=== PATIENT | female | born 1960 | race Two or more races ===

== ENCOUNTER → 2016-11-27 | Outpatient (CLI) | payer OTHER | LOC: BMCIMAGING 15:03 | DX: Z12.31 Encounter for screening mammogram for malignant neoplasm of breast (principal) | CPT/HCPCS: G0202 ==

== ENCOUNTER → 2016-12-14 | Outpatient (CLI) | payer OTHER | LOC: BMCIMAGING 12:46 | DX: Z03.89 Encounter for observation for other suspected diseases and conditions ruled out (principal) | CPT/HCPCS: G0206 ==

== ENCOUNTER 2017-11-28 10:50 | Emergency (ER) | payer OTHER ==
[2017-11-28 10:59] VITALS: TEMP 98.1; O2SAT 95
--- NOTE | 2017-11-28 11:13 | EDPHY ---
HPI/HX/ROS/PE/MDM Narrative: CHIEF COMPLAINT: Cough HPI: This patient is a Jamaican-speaking 57 year old female complaining of cough. The cough has been persistent for about one week. She went to urgent care on Wednesday and was prescribed Azithromycin for bronchitis. She has noted a productive cough with occasional yellow sputum. Additionally, she has had night sweats. Now , has back pain associated with her cough. She denies having a chest x-ray at urgent care. The patient is also taking a cough suppressant at night and one additional medication, but she cannot remember the names of these medications. She denies vomiting, diarrhea, rash, urinary complaints, or other associated symptoms. HPI obtained primarily thought radiology teacher at bedside. REVIEW OF SYSTEMS: Aside from elements discussed in the HPI, a comprehensive 10-point review of systems was reviewed and is negative. PMH: Diabetes. SOCIAL HISTORY: Jamaican-speaking. Friend at bedside. PHYSICAL EXAM: General:Patient is alert, in no acute distress. ENT:Eyes are normal to inspection. ENT inspection normal. Neck: Normal inspection. Full range of motion. Respiratory:No respiratory distress. Breath sounds normal bilaterally. Cardiovascular: Regular rate and rhythm. Strong peripheral pulses. Normal cap refill. Abdomen:The abdomen is nontender to palpation. There are no peritoneal signs. There are normal bowel sounds. Back: Normal to inspection. No tenderness to palpation. Skin: Normal color. No rash. Warm and dry. Extremities: Normal appearance. Full range of motion. Neuro: Oriented x3. Normal motor function. Normal sensory function. ED Course: 57 y/o female presents with one week history of cough. She is currently taking Azithromycin and a cough suppressant, but symptoms persist. Her lungs are clear to auscultation on exam. Plan for chest x-ray. Chest x-ray negative for pneumonia. Plan to discharge patient home in good condition. She informs me she has already completed her course of Azithromycin but is still taking cough medications. She will continue to take these and follow up with her primary care provider. Return precautions discussed. She is comfortable with this plan. - Data Points Imaging Results: Imaging Impressions Chest X-Ray 11/28/17 11:15 Impression: Findings most consistent with airways disease are noted. Imaging: I viewed and interpreted images myself General Initial Vital Signs: Initial Vital Signs Temperature (C) 36.7 C 04/01/18 10:54 Heart Rate 73 11/28/17 10:54 Respiratory Rate 20 11/28/17 10:54 Blood Pressure 164/90 H 11/28/17 10:54 O2 Sat (%) 95 11/28/17 10:54 O2 Delivery Mode Room Air Allergies/Adverse Reactions: No Known Allergies Allergy (Verified 11/28/17 10:54) Home Medications: Medication Instructions Recorded Azithromycin 11/28/17 Diabetic Pill 11/28/17 Departure - Departure Disposition: Home, Routine, Self-Care Clinical Impression: Acute bronchitis Qualifiers: Bronchitis organism: other organism Qualified Code(s): J20.8 - Acute bronchitis due to other specified organisms Condition: Good Instructions: Acute Bronchitis (ED) Additional Instructions: 1. Follow up with your primary care provider in 2-3 days. 2. Continue taking your cough medications as prescribed. 3. Return to the emergency department for fever, chest pain, difficulty breathing, or other worsening of condition. 1. Seguimiento con el provedor de cuidado primario en 2-3 khanna. 2. Continue tomando angel medicamentos xiomara se le recetaron. 3.Regrese al departamento de emergencias si tiene fiebre, dolor de pecho, dificultad al respirar, o empeoramiento de la condicion. Referrals: Salbador Chou MD [Primary Care Provider] - As per Instructions Print Language: Jamaican Report Scribed for: Rubén Pearl Report Scribed by: Corine Hernández Date of Report: 11/28/17 Time of Report: 11:15 Physician Review and Approval Statement: Portions of this note were transcribed by an ED scribe. I personally performed the history, physical exam, and medical decision making; and confirm the accuracy of the information in the transcribed note.
[2017-11-28 11:56] VITALS: BP 135/68; PULSE 80; RESP 16
== END 2017-11-28 12:05 | disposition home or self-care (01) ==
DX: J20.9 Acute bronchitis, unspecified (principal); E11.9 Type 2 diabetes mellitus without complications

== ENCOUNTER → 2017-12-23 | Outpatient (CLI) | payer OTHER | LOC: BMCIMAGING 15:15 | PROVIDERS: ATTEND Internal Medicine | DX: Z12.31 Encounter for screening mammogram for malignant neoplasm of breast (principal) ==

== ENCOUNTER 2018-08-21 23:12 | Emergency (ER) | payer OTHER ==
[2018-08-21] MEDS ORDERED: NS 1,000 ML IV ONE (23:29)
--- NOTE | 2018-08-21 23:30 | EDPHY ---
H & P Stated Complaint: Right flank pain and right mid abdominal pain x 1 week Time Seen by Provider: 08/21/18 23:29 HPI/ROS: HPI CHIEF COMPLAINT: Right-sided abdominal pain. HISTORY OF PRESENT ILLNESS: 58-year-old female, predominantly Cymraes-speaking , has family members at bedside that were used for automotive parts interpreter daughter at bedside. She has a history of diabetes. She presents emergency room with 1 week of abdominal pain it is mainly right-sided. Right mid abdomen. She denies any chest pain or shortness of breath denies pleuritic pain. Pain is located right-sided abdomen right flank. Does not really radiate anywhere. No associated nausea vomiting or diarrhea. Rather constant pain. Denies it being worse after she eats. Past Medical History: Diabetes Past Surgical History: Denies Social History: Denies drugs alcohol tobacco. Family History: Noncontributory ROS REVIEW OF SYSTEMS: 10 Systems were reviewed and negative with the exception of the elements mentioned in the history of present illness. Exam Constitutional appears well nontoxic no acute distress triage nursing summary reviewed, vital signs reviewed, awake/alert. Eyes normal conjunctivae and sclera, EOMI, PERRLA. HENT normal inspection, atraumatic, moist mucus membranes, no epistaxis, neck supple/ no meningismus, no raccoon eyes. Respiratory clear to auscultation bilaterally, normal breath sounds, no respiratory distress, no wheezing. Cardiovascular rate normal, regular rhythm, no murmur, no edema, distal pulses normal. Gastrointestinal mild tender palpation right flank and right-sided abdomen, no rebound, no guarding, normal bowel sounds, no distension, no pulsatile mass. Genitourinary no CVA tenderness. Musculoskeletal no midline vertebral tenderness, full range of motion, no calf swelling, no tenderness of extremities, no meningismus, good pulses, neurovascularly intact. Skin pink, warm, & dry, no rash, skin atraumatic. Neurologic awake, alert and oriented x 3, AAOx3, moves all 4 extremities equally, motor intact, sensory intact, CN II-XII intact, normal cerebellar, normal vision, normal speech. Psychiatric normal mood/affect. Heme/Lymph/Immune no lymphadenopathy. Differential diagnosis includes but is not limited to and in no particular order : Bowel obstruction, appendicitis, gallbladder disease, diverticulitis, colitis , enteritis, perforated viscus, gastritis, GERD, esophagitis, urinary tract infection, pyelonephritis, kidney stones Medical Decision Making: Plan for this patient IV establishment IV fluid bolus , IV Dilaudid 0.5 mg for pain control IV Zofran for nausea, basic blood work, CT scan abdomen pelvis with IV contrast. Re-evaluation: CT scan abdomen pelvis with IV contrast shows a normal appendix. Constipation present. Gallstone in the gallbladder without any signs of acute cholecystitis. Normal right kidney. Called to me by Dr. Park 0114: Re-evaluation at this time resting comfortably no acute distress abdomen soft nontender. No further abdominal pain. And urinalysis reviewed shows UTI. Keflex prescription provided. 1 g Rocephin given in emergency room. As for right-sided abdominal pain it could be due to her urinary tract infection and early kidney infection however also she additionally has a gallstone seen on her CT scan with no evidence of acute cholecystitis. I discussed this at length with Christa NEAL as park interpreter. I do recommend she refrain self spicy fatty greasy foods. Return precautions discussed with the patient worsening abdominal pain fever vomiting Keflex prescribed for UTI. Refrain from fatty greasy foods. Recommend she lose weight. She is comfortable this plan. Extensive discussion with the patient at bedside along with Christa NEAL. All the patient's questions were answered. I do recommend she refrain from fatty greasy foods. Follow up with her primary care doctor Rachel for UTI. Source: Patient - Personal History Current Tetanus Diphtheria and Acellular Pertussis (TDAP): No - Medical/Surgical History Hx Asthma: No Hx Chronic Respiratory Disease: No Hx Diabetes: Yes Hx Cardiac Disease: No Hx Renal Disease: No Hx Cirrhosis: No Hx Alcoholism: No Hx HIV/AIDS: No Hx Splenectomy or Spleen Trauma: No Other PMH: DM - Social History Smoking Status: Never smoked Constitutional: Initial Vital Signs Temperature (C) 36.5 C 08/21/18 23:21 Heart Rate 78 08/21/18 23:21 Respiratory Rate 16 08/21/18 23:21 Blood Pressure 168/91 H 08/21/18 23:21 O2 Sat (%) 95 08/21/18 23:21 O2 Delivery Mode Nasal Cannula O2 (L/minute) 2 Allergies/Adverse Reactions: No Known Allergies Allergy (Verified 11/28/17 10:54) Home Medications: Medication Instructions Recorded Metformin 1000 mg 08/21/18 Cephalexin [Keflex] 500 mg PO Q6H #28 cap 08/22/18 Medical Decision Making - Data Points Laboratory Results: Laboratory Results 08/21/18 23:46 08/21/18 23:46 08/22/18 08/21/18 08/21/18 00:02 23:46 23:46 WBC 7.80 10^3/uL 10^3/uL (3.80-9.50) RBC 5.03 10^6/uL 10^6/uL (4.18-5.33) Hgb 14.5 g/dL g/dL (12.6-16.3) Hct 43.8 % % (38.0-47.0) MCV 87.1 fL fL (81.5-99.8) MCH 28.8 pg pg (27.9-34.1) MCHC 33.1 g/dL g/dL (32.4-36.7) RDW 13.7 % % (11.5-15.2) Plt Count 192 10^3/uL 10^3/uL (150-400) MPV 9.8 fL fL (8.7-11.7) Neut % (Auto) 51.1 % % (39.3-74.2) Lymph % (Auto) 37.7 % % (15.0-45.0) [place] % (Auto) 9.0 % % (4.5-13.0) Eos % (Auto) 1.7 % % (0.6-7.6) Baso % (Auto) 0.4 % % (0.3-1.7) Nucleat RBC Rel Count 0.0 % % (0.0-0.2) Absolute Neuts (auto) 3.99 10^3/uL 10^3/uL (1.70-6.50) Absolute Lymphs (auto) 2.94 10^3/uL 10^3/uL (1.00-3.00) Absolute Monos (auto) 0.70 10^3/uL 10^3/uL (0.30-0.80) Absolute Eos (auto) 0.13 10^3/uL 10^3/uL (0.03-0.40) Absolute Basos (auto) 0.03 10^3/uL 10^3/uL (0.02-0.10) Absolute Nucleated RBC 0.00 10^3/uL 10^3/uL (0-0.01) Immature Gran % 0.1 % % (0.0-1.1) Immature Gran # 0.01 10^3/uL 10^3/uL (0.00-0.10) Sodium 142 mEq/L mEq/L (135-145) Potassium 3.9 mEq/L mEq/L (3.5-5.2) Chloride 111 mEq/L H mEq/L (97-110) Carbon Dioxide 23 mEq/l mEq/l (22-31) Anion Gap 8 mEq/L mEq/L (6-14) BUN 19 mg/dL mg/dL (7-23) Creatinine 0.6 mg/dL mg/dL (0.6-1.0) Estimated GFR > 60 Glucose 105 mg/dL H mg/dL (70-100) Calcium 9.3 mg/dL mg/dL (8.5-10.4) Total Bilirubin 0.4 mg/dL mg/dL (0.1-1.4) Conjugated Bilirubin 0.2 mg/dL mg/dL (0.0-0.5) Unconjugated Bilirubin 0.2 mg/dL mg/dL (0.0-1.1) AST 32 IU/L IU/L (14-46) ALT 33 IU/L IU/L (9-52) Alkaline Phosphatase 129 IU/L H IU/L (38-126) Total Protein 7.6 g/dL g/dL (6.3-8.2) Albumin 4.6 g/dL g/dL (3.5-5.0) Lipase 151 IU/L IU/L (23-300) Urine Color YELLOW Urine Appearance HAZY Urine pH 5.0 (5.0-7.5) Ur Specific [place] > 1.035 H (1.002-1.030) Urine Protein NEGATIVE (NEGATIVE) Urine Ketones NEGATIVE (NEGATIVE) Urine Blood NEGATIVE (NEGATIVE) Urine Nitrate NEGATIVE (NEGATIVE) Urine Bilirubin NEGATIVE (NEGATIVE) Urine Urobilinogen NEGATIVE EU EU (0.2-1.0) Ur Leukocyte Esterase 2+ H (NEGATIVE) Urine RBC 1-3 /hpf /hpf (0-3) Urine WBC 15-25 /hpf H /hpf (0-3) Ur Epithelial Cells TRACE /lpf /lpf (NONE-1+) Urine Mucus TRACE /lpf /lpf (NONE-1+) Urine Glucose NEGATIVE (NEGATIVE) Medications Given: Discontinued Medications Hydromorphone HCl (Dilaudid) 0.5 mg IVP EDNOW ONE Stop: 08/21/18 23:39 Last Admin: 08/21/18 23:55 Dose: 0.5 mg Sodium Chloride (Ns) 1,000 mls @ 0 mls/hr IV EDNOW ONE; Wide Open PRN Reason: Protocol Stop: 08/21/18 23:30 Last Admin: 08/21/18 23:43 Dose: 1,000 mls Ceftriaxone Sodium/Dextrose (Rocephin 1 Gm (Premix)) 50 mls @ 100 mls/hr IV EDNOW ONE PRN Reason: Protocol Stop: 08/22/18 00:50 Last Admin: 08/22/18 00:25 Dose: 50 mls Ondansetron HCl (Zofran) 4 mg IVP EDNOW ONE Stop: 08/21/18 23:39 Last Admin: 08/21/18 23:55 Dose: 4 mg Departure - Departure Disposition: Home, Routine, Self-Care Clinical Impression: Abdominal pain Qualifiers: Abdominal location: right upper quadrant Qualified Code(s): R10.11 - Right upper quadrant pain Urinary tract infection Qualifiers: Urinary tract infection type: acute cystitis Hematuria presence: with hematuria Qualified Code(s): N30.01 - Acute cystitis with hematuria Gallstone Qualifiers: Cholecystitis presence: without cholecystitis Biliary obstruction: without biliary obstruction Qualified Code(s): K80.20 - Calculus of gallbladder without cholecystitis without obstruction Condition: Good Instructions: Cephalexin (By mouth), Gallstones (ED), Urinary Tract Infection in Women (ED) Additional Instructions: 1. Follow up with your primary care doctor 2. Return to the emergency room if he develops worsening abdominal pain, fever, vomiting 3. Infection was seen in urine given antibiotic Referrals: Salbador Chou MD [Primary Care Provider] - As per Instructions Prescriptions: Cephalexin [Keflex] 500 mg PO Q6H #28 cap Print Language: Cymraes
[2018-08-21] MEDS ORDERED: ONDANSETRON 4 MG/2 ML VIAL IVP ONE (23:38)
[2018-08-21] MEDS ORDERED: HYDROmorphONE/DILAUDID 2 MG/ML INJ IVP ONE (23:38)
[2018-08-21] MEDS ORDERED: IOPAMIDOL (ISOVUE-300) 100 ML BTL ONE (23:42)
[2018-08-21 23:53] LABS: PLATELET COUNT 192 10^3/uL (150-400)
[2018-08-22 01:26] VITALS: BP 141/67
== END 2018-08-22 01:47 | disposition home or self-care (01) ==
DX: N30.01 Acute cystitis with hematuria (principal); K80.20 Calculus of gallbladder without cholecystitis without obstruction; K59.00 Constipation, unspecified; E11.9 Type 2 diabetes mellitus without complications; E86.9 Volume depletion, unspecified
CPT/HCPCS: 96365; J0696; J1170; J2405; Q9967

== ENCOUNTER → 2018-09-07 | Outpatient (CLI) | payer OTHER | END | disposition home or self-care (01) | LOC: FIMAGING 15:12 → MERGE 15:12 | PROVIDERS: ATTEND Internal Medicine | DX: Z12.31 Encounter for screening mammogram for malignant neoplasm of breast (principal) ==

== ENCOUNTER → 2018-11-08 | Outpatient (CLI) | payer OTHER | LOC: BMCIMAGING 15:42 | PROVIDERS: ATTEND Internal Medicine | DX: R07.89 Other chest pain (principal) | CPT/HCPCS: 71101-PO ==

== ENCOUNTER → 2018-11-20 | Outpatient (CLI) | payer OTHER | LOC: FIMAGING 07:55 | PROVIDERS: ATTEND Internal Medicine | DX: M54.9 Dorsalgia, unspecified (principal); R93.7 Abnormal findings on diagnostic imaging of other parts of musculoskeletal system ==